=== PATIENT | male | born 1945 | race Caucasian/White ===

== ENCOUNTER → 2019-04-16 | Outpatient (CLI) | payer OTHER ==
[~2019-04-16] MED LIST: B-12500 MCG PO; CHOL10002; COENZYME Q PO; Cialis20 MG PO; FISH1000 PO; METO10; Multiple Vitam1 EAC1 PO; NAPR220; OMEP20ER PO; OXYACE5T PO; POLY17UD; POLY17UD PO; RABE20; RANI150; SIMV40 PO; Selenium100 MCG PO; TRAM50 PO; [UNRECOGNIZED DRUG - CODE]; [UNRECOGNIZED DRUG - OTHER] PO
== END | disposition home or self-care (01) ==
LOC: LAB SHORT 08:27 → PLD 08:27
DX: D04.4 Carcinoma in situ of skin of scalp and neck (principal); L82.1 Other seborrheic keratosis
CPT/HCPCS: 88305